=== PATIENT | male | born 1950 | race Caucasian/White ===

== ENCOUNTER → 2018-06-12 10:53 | Outpatient (CLI) | payer OTHER, SELFPAY ==
--- NOTE | 2018-06-12 11:10 | XR_ITS ---
XR chest 2V HISTORY: Reason pneumonia, smoker, ITS.REASON: RECURRENT PNEUMONIA ORDERING PHYSICIAN: Neelima Heredia PATIENT AGE: 67 years COMPARISON: None FINDINGS: The cardiomediastinal silhouette and pulmonary vascularity are within normal limits. The lungs are clear without infiltrates, suspicious nodules, or pleural effusions. There is hyperinflation with some attenuation of the peripheral pulmonary vessels consistent with COPD. Minimal atelectatic or fibrotic changes are present in the left lung base. No acute bony abnormalities. IMPRESSION: Mild COPD with minimal left basilar fibrotic or atelectatic change otherwise negative
== END ==
PROVIDERS: PCP Physician Assistant; Visit Provider Physician Assistant
DX: J18.9 Pneumonia, unspecified organism (principal)
CPT/HCPCS: 71046

== ENCOUNTER → 2022-07-25 10:20 | Outpatient (CLI) | payer MEDICARE, SELFPAY ==
[2022-07-25 17:25] LABS: Alanine Aminotransferase 30 U/L (12-78); Albumin Level 4.5 g/dl (3.5-5.0); Albumin/Globulin Ratio 1.5 (1.1-1.8); Alkaline Phosphatase 83 U/L (38-126); Anion Gap 11.4 mEq/L (5-15); Aspartate Amino Transferase 31 U/L (17-59); Bilirubin,Total 0.8 mg/dl (0.2-1.3); Blood Urea Nitrogen 15 mg/dl (9-20); Carbon Dioxide 26 mmol/L (22.0-30.0); Chloride 106 mmol/L (98-107); Chol/HDL Ratio 5.6 (1-3.5); Cholesterol 209 mg/dl (140-200); Estimated Glomerular Filt Rate 74 ml/min (>60); GFR (African American) 89 ML/MIN (>60); Glucose 88 mg/dl (74-100); HDL Cholesterol 37 mg/dl (40-60); Potassium 4.4 mmoL/L (3.5-5.1); Sodium 139 mmol/L (136-145); Total Protein,Serum 7.5 g/dl (6.3-8.2); Triglycerides 97 mg/dl (30-150); VLDL Cholesterol 19 mg/dL (0-40)
[2022-07-25 17:36] LABS: Direct LDL Cholesterol 131.69 mg/dL (100-129)
[2022-07-25 17:42] LABS: Basophils # 0.1 K/mm3 (0-0.2); Basophils % 0.9 % (0.1-2.0); Eosinophils # 0.1 K/mm3 (0.0-0.4); Hematocrit 49.7 % (42.0-52.0); Hemoglobin 16.5 g/dL (14.1-18.0); Lymphocytes # 2.1 K/mm3 (0.7-4.5); Lymphocytes % 27.5 % (10-50); Mean Corpuscular HGB Conc 33.2 g/dL (31.8-35.4); Mean Corpuscular Hemoglobin 33.4 pg (27.0-31.2); Mean Corpuscular Volume 100.4 fl (80-94); Mean Platelet Volume 9.2 fl (7.4-10.4); Monocytes # 0.4 K/mm3 (0.1-1.0); Monocytes % 5.9 % (1.7-9.3); Neutrophils # 4.9 K/mm3 (1.8-7.8); Neutrophils % 64.8 % (37.0-80.0); Platelet Count 314 K/mm3 (142-424); Red Blood Count 4.95 M/mm3 (4.60-6.20); Red Cell Distribution Width 13.1 % (11.5-17.5); White Blood Count 7.6 K/mm3 (4.8-10.8)
[2022-07-25 17:56] LABS: Thyroid Stimulating Hormone 2.36 uIU/mL (0.465-4.68)
== END ==
PROVIDERS: PCP Nurse Practitioner Family; Visit Provider Nurse Practitioner Family
DX: R07.9 Chest pain, unspecified (principal); Z79.899 Other long term (current) drug therapy
CPT/HCPCS: 80053; 80061; 84443; 85025

== ENCOUNTER → 2022-08-02 06:18 | Outpatient (CLI) | payer MEDICARE, SELFPAY ==
--- NOTE | 2022-08-02 06:21 | CA_ITS ---
APPROVED REPORT EXAM: Comprehensive 2D, Doppler, and color-flow Echocardiogram Emd Teacher: Tonya Stock CRT Ht: 5 ft 8 in Wt: 149lbs BSA: 1.80 BP: 134/82 mmHg Indications: Chest Pain, Hyperlipidemia, smoker 2D Dimensions LVOT 1.97 cm (M/F) 1.5-2.5 LA Volume 33.60 mL LA Volume Index 18.20 mL/m2 (M/F) 16-34 M-Mode Dimensions RVDd 2.60 cm (0.9-2.6) LA Diam 3.26 cm (1.9-4.0) LVDd 5.02 cm (3.5-5.7) Ao Diam 3.41 cm (2.0-3.7) LVDs 3.40 cm (3.5-5.7) IVSd 1.13 cm (0.6-1.1) PWd 0.77 cm (0.6-1.1) EF (Teich) 60.30% FS 32.30% EDV (Teich) 119.30 mL TAPSE 2.74 (<1.7) ESV (Teich) 47.40 mL LV Diastology E Decel Time 193.00 (160-240 msec) E/A Ratio 1.61 MED E' 9.20 (< 7 cm/sec) MED A' 8.20 cm/s E'/MED E' Ratio 8.39 (>14) LAT E' 8.60 (<10 cm/sec) LAT A' 7.30 cm/s E/LAT E' Ratio 8.98 (>14) Aortic Valve AO Peak GR. 6.50 mmHg Mitral Valve MV A Velocity 48.00 (40-130 cm/s) E/A Ratio 1.61 MV Decel. Time 193.00 (160-240 ms) Pulmonary Valve PV Peak Velocity 140.00 (50-150 cm/s) Tricuspid Valve TR P. Velocity 258.00 cm/s RAP Estimate 10.00 mmHg RVSP 36.60 mmHg Left Ventricle Left atrium is mildly left, left ventricle normal size, estimated ejection fraction 55% with no regional wall motion abnormality, diastolic parameters are inconclusive. Right Ventricle Right atrium and right ventricle are mildly enlarged with normal contractility. Aortic Valve Aortic valve is minimally thickened and fibrosed there is no aortic stenosis or aortic insufficiency. Mitral Valve Mitral valve is grossly normal, there is trace mitral regurgitation. Tricuspid Valve Tricuspid valve grossly normal, there is trace tricuspid regurgitation, tricuspid regurgitation jet velocity is inadequate for calculation of the right ventricular systolic pressure. Pulmonic Valve Pulmonic valve is poorly visualized. Great Vessels Aortic root is normal size. Inferior vena cava is normal size with normal inspiratory collapse. Pericardium No significant pericardial effusion noted. Conclusion 1. Mild biatrial enlargement, normal left ventricular size, estimated ejection fraction 55% with no regional wall motion abnormality, diastolic parameters are inconclusive. 2. Mildly enlarged right ventricle with normal contractility. 3. Trace mitral and tricuspid regurgitation. 4. No significant pericardial effusion noted. 5. Inferior vena cava is normal size with normal inspiratory collapse. Electronically signed by : Dmitri Sarabia MD 08/03/2022 05:44:08
--- NOTE | 2022-08-02 06:28 | NM_ITS ---
APPROVED REPORT Exam: Nuclear Stress Test Indication: HTN, HYPERLIPIDEMIA, TOB USE, C.P. Patient Location: Outpatient Stress Tech: Susy Barrientos NM Tech:Rosalva Wilson LOPEZ RT (R)(N)(M) Ht: 5 ft 8 in Wt: 145 lbs HR: 54 bpm BP: 135/82 mmHg BSA: 1.78 m2 TID: 1.13 BMI: 22.0 History: HTN, HYPERLIPIDEMIA, TOB USE, C.P. Procedure: Patient received 0.4 mg of intravenous Lexiscan, resting heart rate 54 bpm, resting blood pressure 135/82 mmHg, with Lexiscan maximum heart rate achieved was 88 bpm which is Less than 85 % of the maximum predicted heart rate and blood pressure was 134/85 mmHg. With Lexiscan, patient denied any complaint of chest pain. Electrocardiogram Resting electrocardiogram shows sinus rhythm, with Lexiscan there is less than 1.[address] segment depression noted from the baseline EKG. The EKG portion of the Lexiscan is nondiagnostic. Cardiac Stress and Resting SPECT Images: Cardiac Stress and Resting SPECT images were obtained using technetium 99m Myoview 30.4 mCi stress and 9.99 mCi at rest. Gated SPECT for analysis of segmental wall motion and calculation of the ejection fraction also done. Prone images were also obtained. Cardiac stress and rest SPECT images show a fixed defect involving the anteroseptal wall likely secondary to nontransmural myocardial scarring, computer derived ejection fraction is 54% with mild anteroseptal wall hypokinesis, right ventricle is normal size and contractility. Conclusion: 1. The EKG portion of the Lexiscan is nondiagnostic. 2. Scintigraphic evidence of nontransmural myocardial scarring involving the anteroseptal wall, there is no significant mk-infarct ischemia, computer derived ejection fraction is 54% with segmental wall motion abnormality described above, right ventricle is normal size and contractility. 3. Abnormal Lexiscan Myoview study. Electronically signed by : Dmitri Sarabia MD 08/02/2022 21:03:03
--- NOTE | 2022-08-02 08:25 | CA_ITS ---
APPROVED REPORT Exam: Pharmacologic Technologist: Susy Barrientos Ht: 5 ft 8 in Wt: 149 lbs BSA: 1.80 m2 HR: 54 bpm BP: 135/82 mmHg Indications: Chest pain Medical History Medications: Aspirin,,,,, Metoprolol,,,,, Crestor,,,,, Stress Test Details Test: LEXISCAN HR Resting HR: 60 bpm Max Heart Rate (APMHR): 149.688732 bpm Max HR Achieved: 91 bpm Target HR (85% APMHR): 126.829216 bpm % of APMHR: 61.07 Recovery HR: 77 bpm BP Resting BP: 135.0/82.0 mmHg Max BP: 138.0/84.0 mmHg Recovery BP: 138.0/84.0 mmHg ECG Resting ECG: Sinus bradycardia, inferior ST abnormalities, PRWP anteriorly. Clinical Reason for Termination: Completed Protocol Exercise duration: 04:00 min Highest Stage Achieved: Exercise capacity: 1.0 METs Stress ECG Conclusion Non-diagnostic lexiscan stress test. Patient received the infusion per protocol without chest pain. Rare PVC noted. Baseline EKG is sinus with inferior ST abnormalities and PRWP anteriorly that preclude diagnostic interpretation. See the nuclear report for further information. Test Summary REST . . . . . . . Resting REST 09:48 . . 60 . 135/ 82 . . Stage 1 . . . . . . . Myoview Injected Stage 1 01:00 . . 74 . . . . Stage 2 01:00 . . 89 . . . . Stage 3 01:00 . . 83 . 133/ 85 . . Stage 4 01:00 . . 81 . 136/ 81 . Stop exercise at 04:00 RECOVERY 01:00 . . 83 . . . . RECOVERY 02:00 . . 72 . . . . RECOVERY 03:00 . . 77 . 138/ 84 . . RECOVERY 03:14 . . 78 . 138/ 84 . . Electronically signed by : Dmitri Sarabia MD 08/02/2022 20:58:39
== END ==
LOC: RAD 06:21
PROVIDERS: PCP Nurse Practitioner Family; Visit Provider Nurse Practitioner Family
DX: R07.89 Other chest pain (principal)
CPT/HCPCS: 78452; 93017; 93306; A9502; J2785

== ENCOUNTER 2022-08-14 08:28 | Day surgery (SDC) | payer MEDICARE, SELFPAY ==
[2022-08-14] VITALS (14 sets, daily range): BP systolic 106–163; BP diastolic 75–98; PULSE 51–76; RESP 17–19; TEMP 36.9; O2SAT 95–99; BMI 22.9
--- NOTE | 2022-08-14 07:23 | IR_ITS ---
APPROVED REPORT Patient Location: Outpatient Natural Resource Economist: LOPEZ Leahy RT (R) PROCEDURES Left heart catheterization Left ventriculogram Selective coronary angiogram Drug-eluting stent deployment to the proximal mid dominant right coronary INDICATION Coronary artery disease, Angina pectoris, Abnormal Myoview, Informed consent was obtained prior to the procedure. COMPLICATIONS None Estimated Blood Loss: Less than 10 ML TECHNIQUE One percent lidocaine used to anesthetize the right anterior aspect of the wrist. The right radial artery was accessed via the Seldinger technique. A 6 Mauritian sheath was placed in the right radial artery. 2.5 mg of verapamil, 800 mcg of nitroglycerin, 1mg Lidocaine and 5000 U Heparin were given through the arterial sheath. The papa catheter was also used to perform left heart catheterization, left ventriculogram and selective coronary angiogram. At the end the diagnostic procedure therapeutic heparin was administered giving a therapeutic ACT and the guide catheter was placed in the right coronary followed by Choice PT extra-support wire. A 3 mm x 26 mm resolute Dieter stent was deployed at 20 danilo reducing the severe stenosis to 0%. MARIN-3 flow was present before and after the procedure. At the end of the procedure the apparatus was removed the sheath was removed good hemostasis was achieved using TR banding patient was transferred to the postop putting in stable condition ANGIOGRAPHIC RESULTS The left anterior descending artery Originates from the left coronary cusp and has a proximal mostly eccentric 30% stenosis with mild mid vessel distal 10% stenosis The circumflex artery Originates from the left coronary cusp and has mild 10% luminal irregularity The right coronary artery Is dominant and originates from the right coronary cusp and has a proximal to mid vessel 70 to 80% stenosis The TOMLINSON ventriculogram reveals Normal 65% The left ventricular end-diastolic pressure 10 mmHg IMPRESSION Severe single-vessel coronary disease as described above Successful stenting of the proximal to mid dominant right coronary severe disease reduced to 0% with 1 drug-eluting stent Normal ejection fraction Normal left ventricular end-diastolic pressure PLAN 1. Dual antiplatelet therapy 2. Cardiac rehabilitation 3. Avoidance of tobacco product 4. Risk factor modification 5. LDL less than 55 to be achieved with high intensity statin Electronically signed by : Dario Lam MD 08/14/2022 10:08:04
[2022-08-14 09:07] LABS: Basophils # 0.1 K/mm3 (0-0.2); Basophils % 1.4 % (0.1-2.0); Eosinophils # 0.2 K/mm3 (0.0-0.4); Eosinophils % 2.5 % (0.1-12.0); Hemoglobin 16.2 g/dL (14.1-18.0); Lymphocytes # 2.1 K/mm3 (0.7-4.5); Lymphocytes % 26.6 % (10-50); Mean Corpuscular HGB Conc 33.1 g/dL (31.8-35.4); Mean Corpuscular Hemoglobin 32.4 pg (27.0-31.2); Mean Platelet Volume 7.1 fl (7.4-10.4); Monocytes # 0.4 K/mm3 (0.1-1.0); Monocytes % 5.3 % (1.7-9.3); Neutrophils % 64.2 % (37.0-80.0); Platelet Count 293 K/mm3 (142-424); White Blood Count 7.8 K/mm3 (4.8-10.8)
[2022-08-14 09:20] LABS: Anion Gap 9.7 mEq/L (5-15); Blood Urea Nitrogen 15 mg/dl (9-20); Calcium 8.6 mg/dl (8.4-10.2); Carbon Dioxide 29 mmol/L (22.0-30.0); Chloride 105 mmol/L (98-107); Creatinine Clearance Estimated 60 mL/min (50-200); Estimated Glomerular Filt Rate 66 ml/min (>60); GFR (African American) 80 ML/MIN (>60); Glucose 87 mg/dl (74-100); Potassium 3.7 mmoL/L (3.5-5.1); Sodium 140 mmol/L (136-145)
[2022-08-14 11:19] LABS: CATHL Activated Clotting Time 391 SEC (74-125)
--- NOTE | 2022-08-14 14:07 | HMH.PHACL ---
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
== END 2022-08-14 14:12 | disposition home or self-care (01) ==
PROVIDERS: PCP Nurse Practitioner Family; Visit Provider Internal Medicine
DX: I25.118 Atherosclerotic heart disease of native coronary artery with other forms of angina pectoris (principal); F17.210 Nicotine dependence, cigarettes, uncomplicated; Z82.49 Family history of ischemic heart disease and other diseases of the circulatory system; E78.5 Hyperlipidemia, unspecified; I10 Essential (primary) hypertension; Z79.899 Other long term (current) drug therapy
CPT/HCPCS: 80048; 85025; 85347; 92928; 93458; 99152; C1725; C1769; C1876; C9600; J1644; Q9967

== ENCOUNTER → 2023-01-15 08:00 | Outpatient (CLI) | payer MEDICARE, SELFPAY ==
[2023-01-17 13:11] LABS: Lyme Ab CIA Negative (Negative)
== END ==
PROVIDERS: PCP Family Medicine; Visit Provider Family Medicine
DX: W57.XXXA Bitten or stung by nonvenomous insect and other nonvenomous arthropods, initial encounter (principal); S40.261A Insect bite (nonvenomous) of right shoulder, initial encounter
CPT/HCPCS: 86618

== ENCOUNTER → 2023-02-26 09:13 | Outpatient (CLI) | payer MEDICARE, SELFPAY ==
[2023-02-26 10:19] LABS: Alanine Aminotransferase 25 U/L (12-78); Albumin Level 4.3 g/dl (3.5-5.0); Alkaline Phosphatase 70 U/L (38-126); Aspartate Amino Transferase 30 U/L (17-59); Bilirubin,Total 0.7 mg/dl (0.2-1.3); Chol/HDL Ratio 3.2 (1-3.5); Cholesterol 128 mg/dl (140-200); HDL Cholesterol 40 mg/dl (40-60); Total Protein,Serum 7.4 g/dl (6.3-8.2); Triglycerides 85 mg/dl (30-150); VLDL Cholesterol 17 mg/dL (0-40)
[2023-02-26 10:30] LABS: Direct LDL Cholesterol 74.04 mg/dL (100-129)
[2023-02-26 10:33] LABS: Bilirubin,Unconjugated 0.7 mg/dL (0.0-1.1)
[2023-02-26 10:34] LABS: Bilirubin,Direct 0.2 mg/dl (0.0-0.4); Bilirubin,Indirect 0.6 mg/dL (0.0-0.9)
== END ==
PROVIDERS: PCP Family Medicine; Visit Provider Nurse Practitioner
DX: E78.5 Hyperlipidemia, unspecified (principal); I25.10 Atherosclerotic heart disease of native coronary artery without angina pectoris; Z72.0 Tobacco use
CPT/HCPCS: 36415; 80061; 80076